=== PATIENT | female | born 1940 | race Caucasian/White ===

== ENCOUNTER → 2017-10-27 | Outpatient (CLI) | payer OTHER ==
--- NOTE | ~2017-10-27 | 2DMMODE ---
[facility] [place] [address] 2 D/M-MODE ECHOCARDIOGRAM Name: RICPRISCA VASU Room #: REG [facility]#: [id number] Admission: 10/27/17 Attend Phys: Barak Webb MD Discharge: Date of : 44 Date of Service: 10/27/17 1448 Report #: [id number] THIS REPORT FOR: //name// APPROVED REPORT Study performed: 10/27/2017 10:29:29 EXAM: Comprehensive 2D, Doppler, and color-flow Echocardiogram Patient Location: Out-Patient Status: routine BSA: 1.76 HR: 62 bpm BP: 139/79 mmHg Rhythm: NSR Other Information Study Quality: Good Indications Dyspnea. Hx: HTN, HLP. 2D Dimensions RVDd: 29.79 mm LVEF(%): 69.51 (>50%) IVSd: 8.86 (7-11mm) LVOT Diam: 19.73 (18-24mm) LVDd: 41.86 mm PWd: 10.16 (7-11mm) LVDs: 25.64 (25-40mm) Aortic Root: 32.46 mm Hanna's LVEF: 69.51 % Volumes Left Atrial Volume (Systole) Single Plane 4CH: 44.99 mL Single Plane 2CH: 50.69 mL LA ESV Index: 29.00 mL/m2 Aortic Valve AoV Peak Magen.: 2.01 m/s AO Peak Gr.: 16.15 mmHg LVOT Max P.49 mmHg AO Mean Gr.: 9.13 mmHg AO V2 Mean: 1.46 m/s LVOT Max V: 1.06 m/s AO V2 VTI: 45.95 cm JAYSON Vmax: 1.61 cm2 Mitral Valve [facility] [address] [place] [address] 2 D/M-MODE ECHOCARDIOGRAM Name: PRISCA LARIOS Room #: REG [facility].#: [id number] Admission: 10/27/17 Attend Phys: Barak Webb MD Discharge: Date of : 44 Date of Service: 10/27/17 1448 Report #: [id number] E/A Ratio: 0.8 MV Decel. Time: 339.39 ms MV E Max Magen.: 1.01 m/s MV A Magen.: 1.23 m/s MV PHT: 98.42 ms IVRT: 69.20 ms Pulmonary Valve PV Peak Magen.: 0.90 m/s PV Peak Gr.: 3.22 mmHg Pulmonary Vein P Vein S: 0.62 m/s P Vein A: 0.27 m/s P Vein D: 0.35 m/s P Vein A Dur.: 124.6 msec P Vein S/D Ratio: 1.77 Tricuspid Valve TR Peak Magen.: 2.71 m/s RAP Estimate: 5.00 mmHg TR Peak Gr.: 29.27 mmHg PA Pressure: 34.00 mmHg Left Ventricle The left ventricle is normal size. There is normal LV segmental wall motion. Mild basal septal hypertrophy is present. Left ventricular systolic function is normal. LVEF is 55-60%. Mild diastolic dysfunction is present (impaired relaxation pattern). Right Ventricle The right ventricle is normal size. The right ventricular systolic function is normal. Atria The left atrium size is normal. The right atrium size is normal. Aortic Valve Aortic valve is calcified. No aortic regurgitation is present. Borderline mild aortic stenosis. Peak pressure gradient of 16mmHg mean of 9mmHg. Mitral Valve The mitral valve is normal in structure. Moderate mitral annular calcification. Trace mitral regurgitation. Tricuspid Valve The tricuspid valve is normal in structure. Mild tricuspid regurgitation. Estimated PAP is 35mmHg. [address] [address] 2 D/M-MODE ECHOCARDIOGRAM Name: PRISCA LARIOS Room #: REG [facility]#: [id number] Admission: 10/27/17 Attend Phys: Barak Webb MD Discharge: Date of : 44 Date of Service: 10/27/17 1448 Report #: [id number] Pulmonic Valve The pulmonary valve is normal in structure. Trace pulmonic regurgitation. Great Vessels The aortic root is normal in size. The ascending aorta is normal in size. IVC is normal in size and collapses >50% with inspiration. Pericardium There is no pericardial effusion. <Conclusion> The left ventricle is normal size. Left ventricular systolic function is normal. Mild diastolic dysfunction is present (impaired relaxation pattern). The right ventricle is normal size. The left atrium size is normal. Aortic valve is calcified. Borderline mild aortic stenosis. Peak pressure gradient of 16mmHg mean of 9mmHg. Trace mitral regurgitation. Mild tricuspid regurgitation. Estimated PAP is 35mmHg. <ELECTRONICALLY SIGNED> By: Barak Webb MD 10/27/17 1448 1448 1448 Barak Webb MD /INF
== END ==
LOC: CV 10:08
DX: I07.1 Rheumatic tricuspid insufficiency (principal); I34.8 Other nonrheumatic mitral valve disorders; I35.8 Other nonrheumatic aortic valve disorders; I10 Essential (primary) hypertension; E78.5 Hyperlipidemia, unspecified

== ENCOUNTER 2018-08-27 09:13 | Outpatient (CLI) | payer OTHER ==
[~2018-08-27] VITALS: Ht 160 cm; Wt 69.8 kg
[2018-08-27 11:00] VITALS: BP 148/87
[2018-08-27] MEDS ORDERED: CATAPRES0.1 MG PO (11:09)
[2018-08-27] MEDS ORDERED: NORVASC5 MG PO (11:10)
[2018-08-27] MEDS ORDERED: ZANAFLEX2 MG PO (11:10)
[2018-08-27 11:36] LABS: CHOLESTEROL 258 mg/dL (<200); HDL CHOLESTEROL 54 mg/dL (>40); LDL CHOLESTEROL 180 mg/dL (<100); TC:HDL 4.8 Ratio (Not establshd); TRIGLYCERIDE 124 mg/dL (<150); VLDL 25 mg/dL (<40)
--- NOTE | 2018-08-27 15:36 | NUR ---
Sheath pulled from right groin. Hemostasis at 1525. Pt has been nauseated, zofran given without relief. Dr. Webb notified. Recieved order for reglan. Will administer. Still waiting on a CCU bed.
[2018-08-27 16:24] VITALS: BP 117/61
[2018-08-27 16:30] VITALS: BP 122/63
--- NOTE | 2018-08-27 16:55 | CATHLAB ---
[facility] [address] [place] [address] INVASIVE PROCEDURE REPORT Name: PRISCA LARIOS Room #: 201-P [facility]#: [id number] ������������� Admission: 08/27/18 ������������� Attend Phys: Barak Webb MD Discharge: ��� ������������� ��� Date of : 44 Date of Service: 08/27/18 1654 �� Report #: [id number] �������� ��������������������������������������������[id number] THIS REPORT FOR: //name// APPROVED REPORT Study performed: 08/27/2018 11:11:27 Patient Details The patient is a 77 year-old female Event Personnel Barak Webb Applications Engineering Manager, Erin Yoon RN RN, Preston Rivera RTR Kevin Zuleta Valisa Monitor, Stacey Moy linseed cake trimmer Performed Left Heart Cath w/or w/o Coronaries [id number] [facility] Indication Dyspnea, Chest pain Risk Factors HypercholesterolemiaPhysical Activity, Hypertension Procedure Narrative The Right Groin^ was infiltrated with 1% Lidocaine subcutaneous anesthesia. A PINNACLE 6FR Sheath #[id number] sheath was inserted into the RFA^. Coronary angiography was performed using coronary diagnostic catheters. The right coronary system was accessed and visualized with a JR4 catheter. The left coronary system was accessed and visualized with a JL4 catheter. The left ventricle was accessed and visualized with a PIGTAIL catheter. Left ventricular/Aortic Valve gradient assessed via catheter pullback. Hemostasis was obtained with manual pressure following sheath removal without any complications. The patient tolerated the procedure well and there were no complications associated with the procedure. There was no hematoma. Intraoperative Conscious Sedation Sedation start time: 1154 Case end Time: 1240 Fentanyl 100 mcg Versed 1 mg Fluoro Time: 10.08 minutes Dose: DAP 9073.00 cGycm2 1124 mGy [facility] [address] [place] [address] INVASIVE PROCEDURE REPORT Name: PRISCA LARIOS Room #: 201-P [facility]#: [id number] ������������� Admission: 08/27/18 ������������� Attend Phys: Barak Webb MD Discharge: ��� ������������� ��� Date of : 44 Date of Service: 08/27/18 1654 �� Report #: [id number] �������� ��������������������������������������������[id number] Contrast Type and Amount: Omnipaque 165 ml Coronary Angiography The patient's coronary anatomy is right dominant. Diagnostic Cath Left Main This is a large caliber vessel, patent with no flow-limiting lesions. LAD This is a moderate size caliber vessel, traversing the anterior wall and wrapping around the apex. This vessel has mild calcifications in the proximal and mid segments. Within the mid segment, there is mild to moderate diffuse disease, 40-50%. Diagonal 1 This is a patent vessel with mild to moderate diffuse disease proximally, 30-40%. Diagonal 2 This is a small-caliber vessel with mild to moderate diffuse disease. Circumflex This is a patent vessel, with a mild stenosis in the mid segment. OM1 This is a patent vessel, with mild to moderate disease in the proximal segment, 30-40%. OM2 This is a patent vessel, with mild disease proximally. Right Coronary This is a dominant vessel with mild diffuse disease in the proximal and mid segments. This vessel is mildly calcified throughout. R PDA This is a small-caliber vessel, patent with no flow-limiting lesions. RPLV There is a severe, discrete stenosis in the proximal segment, 95%. Left Ventriculography The left ventricle is normal in size with normal contractility. The left ventricular ejection fraction is estimated to be 55-60%. Hemodynamics The aortic pressure is 161/76 mmHg with a mean of 109 mmHg. The left ventricular pressure is 162/19 mmHg with a mean of mmHg. The left ventricular end diastolic pressure is 35 mmHg. PCI Technique Lesion Anticoagulation was achieved with Angiomax. Patient was preloaded with Plavix. Percutaneous coronary intervention was performed on the first right posterior lateral segment. The lesion stenosis prior to intervention was 95% with AGAPITO 3 flow. A LAUNCHER 6FR JR 4 #[id number] Guide Catheter was used to engage the right coronary ostium. A Luge Wire .014 x 182CM #[id number] Interventional Guidewire was used to cross [facility] [address] [place] [address] INVASIVE PROCEDURE REPORT Name: PRISCA LARIOS Room #: 201-P [facility]..#: [id number] ������������� Admission: 08/27/18 ������������� Attend Phys: Barak Webb MD Discharge: ��� ������������� ��� Date of : 44 Date of Service: 08/27/18 1654 �� Report #: [id number] �������� ��������������������������������������������[id number] the lesion. BALLOON DILATION Attempts at crossing the stenosis in the proximal segment of the right posterior lateral branch with a 2.0 mm and then a 1.5 mm balloon was unsuccessful. The patient remained hemodynamically stable throughout the procedure with no complaints of chest pain. It was decided to stop at this point and treat the vessel with medical therapy. Coronary injections revealed AGAPITO-3 blood flow down the RPL branch and no change in the stenotic area. Conclusion 1. Failed angioplasty of RPL artery stenosis, due to inability to cross the lesion with a small-caliber balloon. Recommend medical therapy. 2. Moderate disease in the mid LAD. 3. Mild to moderate disease in the left circumflex system. 4. Normal LV systolic function. 5. Recommend aggressive risk factor management. ��������������������������������������������� <ELECTRONICALLY SIGNED> ���������������������������������������� By: Barak Webb MD ��������������������������������������������� 08/27/18 1654 1654 165 Barak Webb MD /INF
--- NOTE | 2018-08-27 17:34 | NUR ---
PT ARRIVED TO UNIT AT APPROX 1625 FROM SHAMPOO TECHNICIAN BY SHAMPOO TECHNICIAN STAFF ACCOMPANIED BY DAUGHTER. PT ALERT AND ORIENTED, VSS, DENIES PAIN, DENIES N/V. RIGHT GROIN SITE CDI, NO HEMATOMA, BRUISING NOTED AROUND AREA- NOT NEW PER SHAMPOO TECHNICIAN STAFF. PT ON BEDREST 6 HOURS, PT URINATED ADEQUATELY POST PROCEDURE. ADMISSION COMPLETED, PT SAFETY SHEET REGARDING TELEMETRY ISSUES DISCUSSED WITH PT, COMMUNICATES UNDERSTANDING. TELE PUT ON, ADMIT STRIP PRINTED. WILL ACKNOWLEDGE AND IMPLEMENT FURTHER ORDERS. DENIES CONCERNS AT THIS TIME. CONTINUING TO MONITOR.
--- NOTE | 2018-08-27 18:36 | NUR ---
PT CONTINUES TO BE ALERT AND ORIENTED, BEDREST MAINTAINED, GROIN SITE REMAINS CDI, NO HEMATOMA, BRUSING AROUND SITE- NOT NEW. APPETITE ADEQUATE, PT CONTINUES TO DENY CONCERNS. WILL CONTINUE TO MONITOR.
[2018-08-27 19:29] VITALS: BP 113/72
[2018-08-28 00:35] VITALS: BP 103/52
--- NOTE | 2018-08-28 04:27 | NUR ---
ASSUME CARE 1900. PT/VITALS STABLE. NO PAIN NOTED THROUGH THE SHIFT. TOLERATES ACTIVITY WELL. RIGHT GROIN SITE CDI. ASSESSMENT CHARTED. PROGRESSING WELL WITH POC. ADEQUATE REST NOTED THROUGH THE NIGHT. GROIN SITE CDI. BRUISING NOTED. NO CHANGE FROM SHIFT CHANGE. PLAN IS TO MEDICALLY MANAGE STENOSIS AND POSSIBLE DISCHARGE WITHIN 1-2 DAYS. WILL CONTINUE TO MONITOR AND FOLLOW WITH POC
[2018-08-28 04:54] LABS: HEMATOCRIT 38.2 % (37.0-47.0); HEMOGLOBIN 12.8 gm/dL (12.0-15.0); MCH 31.9 pg (26.0-34.0); MCHC 33.4 g/dL (28.0-37.0); MCV 95.5 fL (80.0-100.0); RDW 13.1 % (10.5-14.5); WBC 6.8 thou/uL (4.0-11.0)
[2018-08-28 05:02] LABS: CALCIUM 8.6 mg/dL (8.5-10.1); CREATININE 0.7 mg/dL (0.6-1.0); POTASSIUM 4.2 mmol/L (3.5-5.1)
[2018-08-28 05:35] VITALS: BP 111/59
[2018-08-28 07:24] VITALS: BP 116/71
[2018-08-28] MEDS ORDERED: IMDUR 30 MG TAB30 M1 PO (08:14)
[2018-08-28] MEDS ORDERED: PANTOPRAZOLE SO40 M1 PO (08:16)
[2018-08-28] MEDS ORDERED: ASPIR 8181 MG PO (08:16)
[2018-08-28 08:54] VITALS: BP 116/71
--- NOTE | 2018-08-28 09:27 | EKG ---
[address] [address] ELECTROCARDIOGRAM REPORT Name: PRISCA LARIOS Room #: 201-P REG [facility]#: [id number] ������������������ Admission: 08/27/18 ������������������ Attend Phys: Barak Webb MD Discharge: ������������������ Date of : 44 Report #: [id number] ����������������������������������������������������������������� [id number] THIS REPORT FOR: //name// [facility] Test Date: 2018-08-27 Test Time: 13:48:38 Pat Name: PRISCA LARIOS Department: Room: Gender: F Multi Site Leasing Consultant: Rj PARR : 1940 Requested By: Barak Webb Order Number: [id number] MD: Mark Hall Measurements Intervals [place] Rate: 65 P: 18 NC: 181 QRS: 11 QRSD: 96 T: 30 QT: 448 QTc: 466 Interpretive Statements Sinus rhythm Normal tracing No previous ECG available for comparison Electronically Signed On 08-28-2018 9:27:37 CDT by Mark Hall [email or web address] ��������������������������������������������� <ELECTRONICALLY SIGNED> ���������������������������������������� By: Mark Hall MD, [facility] ��������������������������������������������� 08/28/18 0927 1348 1348 Mark Hall MD, FACC /EPI
[2018-08-28 09:29] VITALS: BP 116/71
--- NOTE | 2018-08-28 09:41 | NUR ---
ASSUMED CARE OF PT AT SHIFT CHANGE. ASSESSMENT CHARTED. MEDS GIVEN PER MAY. PT ALERT AND OREIENTED, VSS, NO C/O PAIN, RIGHT GROIN SITE CDI, NO HEMATOMA, BRUISING AROUND AREA- NOT NEW. DAUGHTER AT BEDSIDE. PT UP SBA. DC ORDERS ACKNOWLEDGED AND IMPLEMENTED, DC PAPERWORK DISCUSSED WITH PT AND DAUGHTER, COMMUNICATES UNDERSTANDING. TELE REMOVED, IV REMOVED, PT LEFT UNIT AT APPROX 0935 WITH ALL BELONGINGS, ACCOMPANIED BY DAUGHTER.
--- NOTE | 2018-08-31 08:00 | D ---
[facility] [place] [address] DISCHARGE SUMMARY Name: RICPRISCA CRANDALLA Room #: DEP [facility]#: [id number] Admission: 08/27/18 ������������������ Attend Phys: Barak Webb MD Discharge: 08/28/18 ������������������ Date of : 44 Report #: [id number] THIS REPORT FOR: //name// CC: Jonas Taoothy Arturo DATE OF SERVICE: 08/28/2018 FINAL DIAGNOSES: 1. Coronary artery disease. 2. Hypertension. 3. Hypercholesterolemia. 4. Depression. 5. Dyspnea on exertion. 6. Intolerance to statins. 7. Hiatal hernia. HOSPITAL COURSE: Please see the original H and P for full details. The patient presents with dyspnea and chest pain. She had a cardiac evaluation in 2018 that was unremarkable. Recently, she has had persistent symptoms, reports an exacerbation of her dyspnea with minimal exertion. She also reported several types of chest pains, the etiology was unclear. She had been in the hospital at [facility] for an episode of chest pain and shortness of breath. Given her ongoing symptoms, it was decided to proceed with a cardiac catheterization. She was found to have moderate disease in the mid LAD. There is [id number] disease in the obtuse marginal arteries. The RCA proper had mild disease. A right posterolateral branch had a severe stenosis at the proximal segment, at least 95%. The LV systolic function is preserved. The lesion in the right posterolateral branch would not account for her symptom of dyspnea. However, it could be contributing to her symptom of angina. An attempted angioplasty was performed. A Luge wire was able to traverse the stenosis in the RPL branch. However, attempts at passing a small angioplasty balloon across the lesion were unsuccessful. It was decided at this time to stop and pursue medical therapy. The patient remained hemodynamically stable. She has not had any issues with chest pain overnight. She remained stable and will be discharged home. FINAL DISPOSITION: Continue with amlodipine 5 mg daily. Imdur 30 mg daily, [address] [address] DISCHARGE SUMMARY Name: PRISCA LARIOS Room #: DEP [facility].#: [id number] Admission: 08/27/18 ������������������ Attend Phys: Barak Webb MD Discharge: 08/28/18 ������������������ Date of : 44 Report #: [id number] aspirin once a day and Protonix 40 mg daily. She has intolerance to statins. She is given instructions for followup. ��������������������������������������������� <ELECTRONICALLY SIGNED> ���������������������������������������� By: Barak Webb MD ��������������������������������������������� 08/31/18 0800 0825 1901 Barak Webb MD /nt
== END 2018-08-28 09:35 | disposition home or self-care (01) ==
LOC: CATH 09:13 → 2N 09:13 → CATH 11:56 → 2N 16:30 → CATH 08-28 09:35
PROVIDERS: Internal Medicine Cardiovascular Disease
DX: I25.10 Atherosclerotic heart disease of native coronary artery without angina pectoris (principal); I10 Essential (primary) hypertension; E78.00 Pure hypercholesterolemia, unspecified; K21.9 Gastro-esophageal reflux disease without esophagitis; E66.09 Other obesity due to excess calories; F32.9 Major depressive disorder, single episode, unspecified; Z79.82 Long term (current) use of aspirin; Z82.49 Family history of ischemic heart disease and other diseases of the circulatory system; Z87.891 Personal history of nicotine dependence; Z98.890 Other specified postprocedural states; Z79.899 Other long term (current) drug therapy; Z88.8 Allergy status to other drugs, medicaments and biological substances
CPT/HCPCS: 10081

== ENCOUNTER → 2019-10-15 | Outpatient (CLI) | payer OTHER ==
[~2019-10-15] MED LIST: ASPIR 8181 MG PO; CATAPRES0.1 MG PO; IMDUR 30 MG TAB30 M1 PO; NORVASC5 MG PO; PANTOPRAZOLE SO40 M1 PO; ZANAFLEX2 MG PO
== END ==
LOC: SJCVCIMAG 09:04 → SJCVC 09:04
PROVIDERS: ATTEND Internal Medicine Cardiovascular Disease
DX: M79.602 Pain in left arm (principal); R60.0 Localized edema; I10 Essential (primary) hypertension; E78.00 Pure hypercholesterolemia, unspecified; M19.90 Unspecified osteoarthritis, unspecified site; K21.9 Gastro-esophageal reflux disease without esophagitis; Z79.82 Long term (current) use of aspirin; Z79.899 Other long term (current) drug therapy; Z82.49 Family history of ischemic heart disease and other diseases of the circulatory system; Z87.891 Personal history of nicotine dependence

== ENCOUNTER → 2019-11-16 | Outpatient (CLI) | payer OTHER | LOC: SJCVC 08:47 | PROVIDERS: ATTEND Nuclear Medicine Nuclear Cardiology | DX: I25.10 Atherosclerotic heart disease of native coronary artery without angina pectoris (principal); I73.9 Peripheral vascular disease, unspecified; I35.0 Nonrheumatic aortic (valve) stenosis; E78.00 Pure hypercholesterolemia, unspecified; E11.9 Type 2 diabetes mellitus without complications; I10 Essential (primary) hypertension; I70.0 Atherosclerosis of aorta; I70.8 Atherosclerosis of other arteries; M19.90 Unspecified osteoarthritis, unspecified site; K21.9 Gastro-esophageal reflux disease without esophagitis; Z98.61 Coronary angioplasty status; Z82.49 Family history of ischemic heart disease and other diseases of the circulatory system; Z79.899 Other long term (current) drug therapy; Z79.82 Long term (current) use of aspirin; Z87.891 Personal history of nicotine dependence ==

== ENCOUNTER → 2020-02-07 | Outpatient (CLI) | payer OTHER ==
--- NOTE | 2020-02-08 10:05 | CARDNUC ---
[address] [address] CARDIAC NUCLEAR IMAGING REPORT Name: PRISCA LARIOS Room #: REG [facility]#: [id number] Admission: 02/07/20 Attend Phys: Lilibeth Burleson MD Discharge: Date of : 44 Report #: [id number] THIS REPORT FOR: cc: Jonas Burger James L. DO Park, Jin S. MD ~ THIS REPORT FOR: //name// Sex/Age : F/79Y Height/Weight : 160.0cm/68.0kg Patient Name : PRISCA LARIOS Study Date : 2020-02-07 BSA : 1.71? Requesting Name : [id number] [facility] Date of : 1940 Request Doctor : LILIBETH BURLESON Department : RAD --< Approved Report > Imaging Protocol: Stress Tl201/Rest Tl201 Study performed: 02/07/2020 10:30:00 Indication: CAD Patient Location: Out-Patient Stress Tech: MATILDA You Stress Nurse: Erin Rodriguez RN, Nayely Salter RN NM Tech:MATILDA You Ht: 5 ft 3 in Wt: 150 lbs BSA: 1.71 m2 HR: 65 bpm BP: 154/66 mmHg BMI: 26.56 Rhythm: Normal Sinus Rhythm Medical History Medical History: Hyperlipidemia, HTN, CVD, PVD, Diabetes, CAD Medications: Amlodipine, Aspirin, Imdur Allergies: Niacin, Tramadol Cardiac Risk Factors: Age Previous Cardiac Procedures: 2019 Cath - Prox R NICA with unsuccessful PTCA Pretest Chest Pain Characteristics: No chest pain Meds Held (24 hrs): Imdur Resting Data Time of rest imagin [facility] [place] [address] CARDIAC NUCLEAR IMAGING REPORT Name: PRISCA LARIOS Room #: REG [facility]#: [id number] Admission: 02/07/20 Attend Phys: Lilibeth Burleson MD Discharge: Date of : 44 Report #: [id number] Pharmacologic Stress Pharmacologic stress test was performed by injecting Regadenoson 0.4 mg IV push over 10-15 seconds immediately followed by the intravenous injection of 2.59 mCi of Thallium. Time of stress injection: 1055 Date: 02/07/2020 Administration Route: IV Administration Site: Left AC Gated Stress SPECT was performed 10 minutes after stress injection. The images were gated to evaluate regional wall motion and calculate left ventricular ejection fraction. Stress Test Details Stress Test: Pharmacologic stress testing performed using 0.4 mg of regadenoson per 5 mL given IV over 10 seconds. Reason for pharmacologic stress test: physical limitation. HR Max Heart Rate (APMHR): 143 bpm Resting HR: 65 bpm Target HR (85% APMHR): 121 bpm Max HR Achieved: 94 bpm % of APMHR: 65 Recovery HR: 85 bpm BP Resting BP: 154/66 mmHg Max BP: 150/72 mmHg Recovery BP: 150/76 mmHg ECG Resting ECG: Normal Sinus Rhythm Stress ECG: Normal Sinus Rhythm ST Change: Non-ischemic Arrhythmia: None Recovery ECG: Normal Sinus Rhythm Clinical Reason for Termination: Completed protocol Stress Symptoms: Abdominal discomfort, Dyspnea, Headache Symptoms resolved with caffeine. Study Quality Study: Good Study Data Post stress, the left ventricular ejection was 77%.. SSS: 0 SRS: [address] [facility] [place] [place] [address] CARDIAC NUCLEAR IMAGING REPORT Name: PRISCA LARIOS VASU Room #: REG [facility].#: [id number] Admission: 02/07/20 Attend Phys: Lilibeth Burleson MD Discharge: Date of : 44 Report #: [id number] SDS: 0 TID = 1.19. Perfusion There is a small area of mildly reduced uptake in the apical segment of the inferior wall which is seen on the stress images and improves on the resting images. This area thickens and moves normally and is most consistent with ischemia. Wall Motion Normal left ventricular wall motion. Nuclear Conclusion ECG Findings: negative for ischemia Clinical Findings: non-diagnostic Nuclear Findings: positive for ischemia Exercise Capacity: not assessed Left Ventricular Function: normal There is a small area of ischemia in the distal inferoapical segment. There is normal global and segmental LV systolic function. Electronically Approved : 02/08/2020 09:58:04 By: [id number] Lilibeth Burleson MD /STEFANIA
--- NOTE | 2020-02-08 10:10 | CARDNUC ---
[facility] [place] [address] CARDIAC NUCLEAR IMAGING REPORT Name: PRISCA LARIOS Room #: REG [facility]#: [id number] Admission: 02/07/20 Attend Phys: Lilibeth Burleson MD Discharge: Date of : 44 Report #: [id number] THIS REPORT FOR: cc: Jonas Burger James L. DO Park, Jin S. MD Park, Jin S. MD ~ THIS REPORT FOR: //name// Sex/Age : F/79Y Height/Weight : 160.0cm/68.0kg Patient Name : PRISCA LARIOS Study Date : 2020-02-07 BSA : 1.71? Requesting Name : [id number] [facility] Date of : 1940 Request Doctor : LILIBETH BURLESON Department : RAD --< Approved Report > Imaging Protocol: Stress Tl201/Rest Tl201 Study performed: 02/07/2020 10:30:00 Indication: CAD Patient Location: Out-Patient Stress Tech: MATILDA You Stress Nurse: Erin Rodriguez RN, Nayely Salter RN NM Tech:MATILDA You Ht: 5 ft 3 in Wt: 150 lbs BSA: 1.71 m2 HR: 65 bpm BP: 154/66 mmHg BMI: 26.56 Rhythm: Normal Sinus Rhythm Medical History Medical History: Hyperlipidemia, HTN, CVD, PVD, Diabetes, CAD Medications: Amlodipine, Aspirin, Imdur Allergies: Niacin, Tramadol Cardiac Risk Factors: Age Previous Cardiac Procedures: 2019 Cath - Prox R NICA with unsuccessful PTCA Pretest Chest Pain Characteristics: No chest pain Meds Held (24 hrs): Imdur Resting Data Time of rest imagin [facility] [place] [address] CARDIAC NUCLEAR IMAGING REPORT Name: PRISCA LARIOS Room #: REG [facility]#: [id number] Admission: 02/07/20 Attend Phys: Lilibeth Burleson MD Discharge: Date of : 44 Report #: [id number] Pharmacologic Stress Pharmacologic stress test was performed by injecting Regadenoson 0.4 mg IV push over 10-15 seconds immediately followed by the intravenous injection of 2.59 mCi of Thallium. Time of stress injection: 1055 Date: 02/07/2020 Administration Route: IV Administration Site: Left AC Gated Stress SPECT was performed 10 minutes after stress injection. The images were gated to evaluate regional wall motion and calculate left ventricular ejection fraction. Stress Test Details Stress Test: Pharmacologic stress testing performed using 0.4 mg of regadenoson per 5 mL given IV over 10 seconds. Reason for pharmacologic stress test: physical limitation. HR Max Heart Rate (APMHR): 143 bpm Resting HR: 65 bpm Target HR (85% APMHR): 121 bpm Max HR Achieved: 94 bpm % of APMHR: 65 Recovery HR: 85 bpm BP Resting BP: 154/66 mmHg Max BP: 150/72 mmHg Recovery BP: 150/76 mmHg ECG Resting ECG: Normal Sinus Rhythm Stress ECG: Normal Sinus Rhythm ST Change: Non-ischemic Arrhythmia: None Recovery ECG: Normal Sinus Rhythm Clinical Reason for Termination: Completed protocol Stress Symptoms: Abdominal discomfort, Dyspnea, Headache Symptoms resolved with caffeine. Study Quality Study: Good Study Data Post stress, the left ventricular ejection was 77%.. SSS: 0 SRS: 0 [facility] [address] [place] [address] CARDIAC NUCLEAR IMAGING REPORT Name: RICPRISCAGUILHERME LEONE Room #: REG [facility]#: [id number] Admission: 02/07/20 Attend Phys: Lilibeth Burleson MD Discharge: Date of : 44 Report #: [id number] SDS: 0 TID = 1.19. Perfusion There is a small area of mildly reduced uptake in the apical segment of the inferior wall which is seen on the stress images and improves on the resting images. This area thickens and moves normally and is most consistent with ischemia. Wall Motion Normal left ventricular wall motion. Nuclear Conclusion ECG Findings: negative for ischemia Clinical Findings: non-diagnostic Nuclear Findings: positive for ischemia Exercise Capacity: not assessed Left Ventricular Function: normal There is a small area of ischemia in the distal inferoapical segment. There is normal global and segmental LV systolic function. Electronically Approved : 02/08/2020 09:58:04 By: [id number] Lilibeth Burleson MD /STEFANIA
== END ==
LOC: SJCVCIMAG 12-20 08:48
PROVIDERS: ATTEND Internal Medicine Cardiovascular Disease
DX: I25.10 Atherosclerotic heart disease of native coronary artery without angina pectoris (principal); E78.00 Pure hypercholesterolemia, unspecified; I10 Essential (primary) hypertension; K21.9 Gastro-esophageal reflux disease without esophagitis; E78.5 Hyperlipidemia, unspecified; E11.9 Type 2 diabetes mellitus without complications; I73.9 Peripheral vascular disease, unspecified; Z79.899 Other long term (current) drug therapy; Z87.891 Personal history of nicotine dependence

== ENCOUNTER → 2020-06-13 | Outpatient (CLI) | payer OTHER | LOC: SJCVCIMAG 09:02 | PROVIDERS: ATTEND Nuclear Medicine Nuclear Cardiology | DX: I65.23 Occlusion and stenosis of bilateral carotid arteries (principal); I70.8 Atherosclerosis of other arteries; I73.9 Peripheral vascular disease, unspecified; I77.9 Disorder of arteries and arterioles, unspecified; I35.0 Nonrheumatic aortic (valve) stenosis; E11.9 Type 2 diabetes mellitus without complications; I25.10 Atherosclerotic heart disease of native coronary artery without angina pectoris; I10 Essential (primary) hypertension; E78.00 Pure hypercholesterolemia, unspecified; M79.606 Pain in leg, unspecified; I70.0 Atherosclerosis of aorta; M19.90 Unspecified osteoarthritis, unspecified site; K21.9 Gastro-esophageal reflux disease without esophagitis; Z90.49 Acquired absence of other specified parts of digestive tract; Z98.890 Other specified postprocedural states; Z88.8 Allergy status to other drugs, medicaments and biological substances; Z79.82 Long term (current) use of aspirin; Z79.899 Other long term (current) drug therapy; Z87.891 Personal history of nicotine dependence; Z82.49 Family history of ischemic heart disease and other diseases of the circulatory system ==

== ENCOUNTER → 2020-08-07 | Outpatient (CLI) | payer OTHER | LOC: SJCVC 10:45 | PROVIDERS: ATTEND Internal Medicine Cardiovascular Disease | DX: R94.31 Abnormal electrocardiogram [ECG] [EKG] (principal); I25.10 Atherosclerotic heart disease of native coronary artery without angina pectoris; I10 Essential (primary) hypertension; R60.9 Edema, unspecified; E78.00 Pure hypercholesterolemia, unspecified; M19.90 Unspecified osteoarthritis, unspecified site; K21.9 Gastro-esophageal reflux disease without esophagitis; F41.9 Anxiety disorder, unspecified; F32.9 Major depressive disorder, single episode, unspecified; Z87.891 Personal history of nicotine dependence; Z79.82 Long term (current) use of aspirin; Z79.899 Other long term (current) drug therapy; Z88.1 Allergy status to other antibiotic agents; Z88.8 Allergy status to other drugs, medicaments and biological substances ==

== ENCOUNTER → 2021-02-21 | Outpatient (CLI) | payer OTHER | LOC: SJCVCIMAG 08:30 | PROVIDERS: ATTEND Internal Medicine Cardiovascular Disease | DX: I08.3 Combined rheumatic disorders of mitral, aortic and tricuspid valves (principal); I25.10 Atherosclerotic heart disease of native coronary artery without angina pectoris; I10 Essential (primary) hypertension; R60.9 Edema, unspecified; E78.00 Pure hypercholesterolemia, unspecified; F41.9 Anxiety disorder, unspecified; M19.90 Unspecified osteoarthritis, unspecified site; I65.29 Occlusion and stenosis of unspecified carotid artery; F32.9 Major depressive disorder, single episode, unspecified; K21.9 Gastro-esophageal reflux disease without esophagitis; K44.9 Diaphragmatic hernia without obstruction or gangrene; Z87.891 Personal history of nicotine dependence; Z79.82 Long term (current) use of aspirin; Z79.899 Other long term (current) drug therapy; Z88.8 Allergy status to other drugs, medicaments and biological substances ==